=== PATIENT | female | born 1970 | race Asian ===

== ENCOUNTER 2019-01-22 15:14 | Emergency (ER) | payer BC ==
[2019-01-22] MEDS ORDERED: KETOROLAC 15 MG INJ IV (16:35)
[2019-01-22] MEDS ORDERED: SOD CHLORIDE 0.9% 1,000 ML IV (16:35)
[2019-01-22] MEDS ORDERED: ONDANSETRON 4 MG INJ IV (16:35)
[2019-01-22] MEDS ORDERED: OXYCODONE/ACETAMINOPHEN (5/325) TAB PO (17:00)
[2019-01-22 17:07] LABS: ADD UMIC YES; UR ASCORBIC ACID 40 mg/dL (NEGATIVE); UR BILIRUBIN (Dip) NEGATIVE (NEGATIVE); UR BLOOD (Dip) 3+ mg/dL (NEGATIVE); UR BUDDING YEAST MODERATE /HPF (NONE SEEN); UR CLARITY CLOUDY (CLEAR); UR COLOR YELLOW (YELLOW); UR GLUCOSE (Dip) NEGATIVE (NEGATIVE); UR KETONES (Dip) NEGATIVE (NEGATIVE); UR LEUKOCYTE ESTERASE (Dip) 1+ Leu/ul (NEGATIVE); UR MUCUS MODERATE /HPF (NONE SEEN); UR NITRITE (Dip) NEGATIVE (NEGATIVE); UR RBC > 182 /HPF (0-5); UR SPECIFIC GRAVITY (Dip) 1.019 (1.003-1.030); UR SQUAMOUS EPITHELIAL CELL FEW /HPF (FEW); UR TOTAL PROTEIN (Dip) 1+ mg/dl (NEGATIVE); UR UROBILINOGEN (Dip) NEGATIVE (NEGATIVE); UR WBC 36 /HPF (0-5)
[2019-01-22] MEDS: IBUPROFEN 600 MG TAB PO (17:20)
[2019-01-22] MEDS: ONDANSETRON (ODT) 4 MG TAB ODT (17:21)
[2019-01-22] MEDS: CEPHALEXIN 500 MG CAP PO (17:21)
== END 2019-01-22 17:25 | disposition home or self-care (01) ==
LOC: E/R 15:14
DX: N30.01 Acute cystitis with hematuria (principal); B37.41 Candidal cystitis and urethritis
CPT/HCPCS: 81001; 99283